=== PATIENT | female | born 1950 | race Two or more races ===

== ENCOUNTER 2017-07-29 18:27 | Inpatient (IN) | payer MEDICARE, OTHER ==
[~2017-07-29] VITALS: Ht 157.5 cm; Wt 60.8 kg
[2017-07-29] MEDS ORDERED: MIRT15TA7 PO (18:32)
[2017-07-29] MEDS ORDERED: QUET100T PO (18:32)
[2017-07-29] MEDS ORDERED: QUET300T2 PO (18:32)
[2017-07-29] MEDS ORDERED: LAMO200T PO (18:32)
--- NOTE | 2017-07-29 18:46 | NUR ---
Iced water & apple juice provided per patient's request.
--- NOTE | 2017-07-29 19:10 | NUR ---
Patient medically cleared by Dr Mensah. Called Laly Wakefield from [facility] to eval patient. ETA 1hr
--- NOTE | 2017-07-29 19:55 | NUR ---
Pinky from [facility] here to eval patient
--- NOTE | 2017-07-29 20:00 | NUR ---
Laly from [facility] placed patient on 5150 Hold for GD
--- NOTE | 2017-07-29 20:30 | NUR ---
[place]abil[place] [facility] [place]
[2017-07-29] MEDS ORDERED: MAG HYDROX/AL HYDROX/SIMETH 30 ML LIQUID UDC PO PRN (21:45)
[2017-07-29] MEDS ORDERED: MAGNESIUM HYDROXIDE 30 ML LIQUID UDC PO PRN (21:45)
[2017-07-29] MEDS ORDERED: LORAZEPAM 0.5 MG TABLET PO PRN (21:45)
[2017-07-29 22:15] VITALS: BP 121/52
[2017-07-30] MEDS: TEMAZEPAM 7.5 MG CAPSULE PO PRN (00:08)
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
[2017-07-30 07:30] VITALS: BP 140/80
--- NOTE | 2017-07-30 14:03 | NUR ---
Gps/Chronic Specialist- MRSA swab obtained and sent to lab.
[2017-07-30] MEDS: ACETAMINOPHEN 325 MG TABLET PO PRN (15:16)
[2017-07-30 15:54] VITALS: BP 163/82
[2017-07-30 20:00] VITALS: BP_SYST 162; BP_SYST 188; BP_DIAS 57; BP_DIAS 68
[2017-07-30] MEDS: LAMOTRIGINE 200 MG TABLET PO SCH (21:00)
[2017-07-30] MEDS ORDERED: QUETIAPINE FUMARATE 100 MG TABLET PO SCH (21:45)
[2017-07-30] MEDS ORDERED: MIRTAZAPINE 15 MG TABLET PO ONE (22:00)
[2017-07-30] MEDS ORDERED: QUETIAPINE FUMARATE 200 MG TABLET PO ONE (22:00)
[2017-07-30] MEDS ORDERED: MIRTAZAPINE 15 MG TABLET ONE (22:13)
[2017-07-30] MEDS ORDERED: LAMOTRIGINE 100 MG TABLET ONE (22:13)
[2017-07-30] MEDS ORDERED: QUETIAPINE FUMARATE 100 MG TABLET ONE (22:14)
[2017-07-30] MEDS ORDERED: QUETIAPINE FUMARATE 200 MG TABLET ONE (22:21)
[2017-07-30] MEDS ORDERED: CLONIDINE HCL 0.1 MG TABLET PO PRN (22:30)
[2017-07-31 07:05] LABS: BASOPHILS % (AUTO) 0.5 % (0.0-2.0); EOSINOPHILS # (AUTO) 0.1 K/uL (0.0-0.7); EOSINOPHILS % (AUTO) 3.5 % (0.0-7.0); HEMATOCRIT 39.3 % (31.2-41.9); HEMOGLOBIN 13.1 g/dL (10.9-14.3); LYMPHOCYTES # (AUTO) 1.8 K/uL (20.0-40.0); LYMPHOCYTES % (AUTO) 44.5 % (20.5-51.5); MEAN CORPUSCULAR HEMOGLOBIN 32.1 uug (24.7-32.8); MEAN CORPUSCULAR HGB CONC 33 g/dL (32.3-35.6); MEAN CORPUSCULAR VOLUME 96.1 fL (75.5-95.3); MONOCYTES # (AUTO) 0.4 K/uL (2.0-10.0); MONOCYTES % (AUTO) 9.7 % (0.0-11.0); NEUTROPHILS # (AUTO) 1.7 K/uL (1.8-8.9); NEUTROPHILS % (AUTO) 41.8 % (38.5-71.5); PLATELET COUNT (AUTO) 280 K/uL (179-408); RED BLOOD CELL COUNT(AUTO) 4.08 MIL/uL (3.63-4.92); WHITE BLOOD COUNT (AUTO) 4.1 K/uL (3.8-11.8)
[2017-07-31 07:25] LABS: THYROID STIMULATING HORMONE 6.425 mIU/mL (0.358-3.740)
[2017-07-31 07:41] LABS: BILIRUBIN,TOTAL 0.2 mg/dL (0.2-1.0); CREATININE 0.7 mg/dL (0.6-1.3); MAGNESIUM 2.5 mg/dL (1.8-2.4); PHOSPHOROUS 3.8 mg/dL (2.5-4.9); POTASSIUM 4.1 mmol/L (3.5-5.1); TOTAL PROTEIN, SERUM 6.4 g/dL (6.4-8.2)
[2017-07-31 08:30] VITALS: BP 123/65
[2017-07-31] MEDS: LAMOTRIGINE 200 MG TABLET PO SCH ×2 (10:22→21:23)
[2017-07-31 15:43] VITALS: BP 144/90
[2017-07-31] MEDS: ACETAMINOPHEN 325 MG TABLET PO PRN (16:50)
[2017-07-31 19:39] VITALS: BP 137/67
--- NOTE | 2017-07-31 20:47 | NUR ---
Patient received in dinning room watching t.v. interacting with staff and peers. Patient in no apparent distress will continue to monitor. Patient denies delusions, no yelling, no screaming. No aggressive or combative behavior noted will continue to monitor and redirect as needed. Patient complaint with medication.
[2017-07-31] MEDS: MIRTAZAPINE 15 MG TABLET PO SCH (21:00)
[2017-07-31] MEDS: QUETIAPINE FUMARATE 200 MG TABLET PO SCH (21:24)
[2017-08-01] MEDS: LEVOTHYROXINE SODIUM 25 MCG TABLET PO SCH (06:20)
[2017-08-01 07:30] VITALS: BP 122/61
[2017-08-01] MEDS: LAMOTRIGINE 200 MG TABLET PO SCH ×2 (09:09→21:22)
[2017-08-01 15:35] VITALS: BP 132/74
--- NOTE | 2017-08-01 15:51 | NUR ---
DC Note: Surya miller lives home alone in [address] [[address] [address]; [phone]] and would like to return there upon discharge. SW will follow up with MD, patient, and patient's watch case polisher Pina [[phone]] to discuss most appropriate discharge plans. SW will form a safe and proper discharge.
[2017-08-01] MEDS: CLONAZEPAM 0.5 MG TABLET PO SCH (17:25)
[2017-08-01 20:24] VITALS: BP 144/48
[2017-08-01] MEDS: MIRTAZAPINE 15 MG TABLET PO SCH (21:22)
[2017-08-01] MEDS: QUETIAPINE FUMARATE 200 MG TABLET PO SCH (21:23)
--- NOTE | 2017-08-01 21:50 | NUR ---
Patient received in dinning room watching t.v. interacting with staff and peers. Patient is intrusive, needy, demanding wants instant gratification, is redirectable. Patient in no apparent distress will continue to monitor. Patient denies delusions, no yelling, no screaming. No aggressive or combative behavior noted will continue to monitor and redirect as needed. Patient complaint with medication.
[2017-08-01 22:12] VITALS: BP 141/75
[2017-08-01] MEDS: TEMAZEPAM 7.5 MG CAPSULE PO PRN (23:47)
[2017-08-02] MEDS: LEVOTHYROXINE SODIUM 25 MCG TABLET PO SCH (06:38)
[2017-08-02 07:30] VITALS: BP 113/53
[2017-08-02] MEDS: LAMOTRIGINE 200 MG TABLET PO SCH ×2 (09:06→20:44)
[2017-08-02] MEDS: CLONAZEPAM 0.5 MG TABLET PO SCH ×3 (09:07→16:50)
--- NOTE | 2017-08-02 09:55 | NUR ---
Firearms Reporting: DAVID submitted Mental Health Report to [facility] on 08/02.
[2017-08-02 15:08] VITALS: BP 166/68
[2017-08-02] MEDS: ACETAMINOPHEN 325 MG TABLET PO PRN (16:49)
[2017-08-02 19:41] VITALS: BP_SYST 113; BP_SYST 130; BP_DIAS 57; BP_DIAS 71
[2017-08-02] MEDS: MIRTAZAPINE 15 MG TABLET PO SCH (20:44)
[2017-08-02] MEDS: QUETIAPINE FUMARATE 200 MG TABLET PO SCH (20:45)
--- NOTE | 2017-08-02 20:45 | NUR ---
RECEIVED PATIENT WALKING THE HALLWAY.SHE IS A/O X3.COOPERATIVE WITH STAFF IN HER CARE BUT PRE OCCUPIED WITH MEDICATION REGIMEN. SHE IS HOWEVER MED COMPLIANT.SAFETY EMPHASIZED AND BED IN LOW POSITION WITH WHEELS LOCKED AND FREQUENT HEAD CHECKS . NOTED WITH HYPERVERBAL AND MOOD IS BRIGHT.
[2017-08-03] MEDS: LEVOTHYROXINE SODIUM 25 MCG TABLET PO SCH (06:27)
--- NOTE | 2017-08-03 07:05 | NUR ---
PATIENT SLEPT FOR APPROXIMATELY 8HRS THROUGH THE NIGHT. NO BEHAVIORAL PROBLEMS DURING THIS SHIFT
[2017-08-03 07:30] VITALS: BP 118/54
[2017-08-03] MEDS: LAMOTRIGINE 200 MG TABLET PO SCH ×2 (08:53→20:54)
[2017-08-03] MEDS: CLONAZEPAM 0.5 MG TABLET PO SCH ×3 (08:53→17:32)
[2017-08-03 16:22] VITALS: BP 149/57
--- NOTE | 2017-08-03 17:39 | NUR ---
visible on unit and remains needy and intrusive, affect hyper and mood labile continue to monitor for safety , encourage expression of fears
[2017-08-03 20:08] VITALS: BP 140/65
--- NOTE | 2017-08-03 20:30 | NUR ---
RECEIVED PATIENT IN THE HALLWAY, SHE IS NOTED A/O X 3. ABLE TO AMBULATE WITH STEADY GAIT AND ABLE TO MAKE HER NEEDS KNOWN. PATIENT NOTED WITH FAIR INSIGHT, FAIR JUDGMENT. HYPERVERBAL, INTRUSIVE. SHE IS ABLE TO COMPLY WITH MEDICATION REGIMENT DIET AND PLAN OF CARE. SAFETY EMPHASIS. BED AT LOWEST POSITION, ROOM FREE FROM CLUTTER, WELL-LIT AND FREQUENT HEAD CHECKS. WILL CONTINUE TO MONITOR
[2017-08-03] MEDS: MIRTAZAPINE 15 MG TABLET PO SCH (20:53)
[2017-08-03] MEDS: QUETIAPINE FUMARATE 200 MG TABLET PO SCH (20:54)
[2017-08-04] MEDS: LEVOTHYROXINE SODIUM 25 MCG TABLET PO SCH (06:50)
[2017-08-04 07:30] VITALS: BP 139/46
[2017-08-04] MEDS: CLONAZEPAM 0.5 MG TABLET PO SCH ×2 (08:39→12:22)
[2017-08-04] MEDS: LAMOTRIGINE 200 MG TABLET PO SCH (08:39)
--- NOTE | 2017-08-04 10:22 | NUR ---
DC Note: Patient will be discharged home [[address] [place] [address]; [phone]] via taxi today. Patient is alert and oriented x4 and denies SI and HI. Patient is aware and agreeable to discharge plans. Patient does not want any family contacted regarding discharge plans. Patient will follow up with her psychiatrist Dr. Adeline Morocho [[address] [place] [address]; [phone]] and primary care physician Dr. Shruti Panchal [[address] [address]; [phone]]. Patient will also follow up with her bilingual patient support caseworker Pina through [facility]. [[phone]] Patient was provided additional mental health resources to the National Suicide Prevention Lifeline and the [facility] Crisis Line .
--- NOTE | 2017-08-04 11:43 | NUR ---
Gps/[employer] Operator- Reviewed medications/prescriptions, diet, safety, follow up with Medical Doctor and Psychiatrist recommended, patient verbalized understanding. All belongings given back to patient and signed.No New compliant noted, patient aware and well instructed regarding her discharged instructions, verbalizing understanding.Looking forward to going home per patient. Will be discharge via taxi to [facility] as arranged by DAVID.
== END 2017-08-04 14:30 | disposition home or self-care (01) | DRG 885 ==
LOC: ER 18:30 → GPS 21:51
PROVIDERS: ADMIT Psychiatry & Neurology Psychiatry; ATTEND Internal Medicine
DX: F31.2 Bipolar disorder, current episode manic severe with psychotic features (principal); E88.09 Other disorders of plasma-protein metabolism, not elsewhere classified; E03.9 Hypothyroidism, unspecified; Z90.49 Acquired absence of other specified parts of digestive tract; E55.9 Vitamin D deficiency, unspecified; F20.9 Schizophrenia, unspecified; Z79.899 Other long term (current) drug therapy
CPT/HCPCS: 36415; 82306; 83735; 84100; 84443; 85025; A4663

== ENCOUNTER 2020-07-04 20:48 | Inpatient (IN) | payer MEDICARE, OTHER ==
[~2020-07-04] VITALS: Ht 160 cm; Wt 63.5 kg
[2020-07-04] MEDS ORDERED: ACETAMINOPHEN ES 500 MG TABLET PO ONE (21:00)
[2020-07-04] MEDS ORDERED: ASPIRIN 81 MG TAB.CHEW PO ONE (21:00)
[2020-07-04] MEDS ORDERED: NITROGLYCERIN OINT 1 GM PACKET TP ONE ×2 (21:00→21:15)
[2020-07-04] MEDS ORDERED: ACETAMINOPHEN ES 500 MG TABLET ONE (21:14)
[2020-07-04] MEDS ORDERED: ASPIRIN 81 MG TAB.CHEW ONE (21:15)
[2020-07-04] MEDS ORDERED: PRAZ2CAP2 PO (21:16)
[2020-07-04] MEDS ORDERED: QUET100T PO (21:16)
[2020-07-04] MEDS ORDERED: LEVO50TA8 PO (21:16)
[2020-07-04] MEDS ORDERED: LAMO200T10 PO (21:16)
[2020-07-04] MEDS ORDERED: QUET300T2 PO (21:16)
[2020-07-04 21:24] LABS: BASOPHILS % (AUTO) 0.4 % (0.0-2.0); EOSINOPHILS # (AUTO) 0.1 K/uL (0.0-0.7); EOSINOPHILS % (AUTO) 1.9 % (0.0-7.0); HEMATOCRIT 41.2 % (31.2-41.9); HEMOGLOBIN 13.9 g/dL (10.9-14.3); LYMPHOCYTES # (AUTO) 1.3 K/uL (20.0-40.0); LYMPHOCYTES % (AUTO) 16.3 % (20.5-51.5); MEAN CORPUSCULAR HEMOGLOBIN 32.6 uug (24.7-32.8); MEAN CORPUSCULAR HGB CONC 34 g/dL (32.3-35.6); MEAN CORPUSCULAR VOLUME 96.4 fL (75.5-95.3); MONOCYTES # (AUTO) 0.7 K/uL (2.0-10.0); MONOCYTES % (AUTO) 8.9 % (0.0-11.0); NEUTROPHILS # (AUTO) 5.7 K/uL (1.8-8.9); NEUTROPHILS % (AUTO) 72.5 % (38.5-71.5); PLATELET COUNT (AUTO) 303 K/uL (179-408); RED BLOOD CELL COUNT(AUTO) 4.27 MIL/uL (3.63-4.92); WHITE BLOOD COUNT (AUTO) 7.9 K/uL (3.8-11.8)
[2020-07-04 21:27] LABS: CREATININE 1.1 mg/dL (0.6-1.3); POTASSIUM 4.1 mmol/L (3.5-5.1)
[2020-07-04 21:33] LABS: BILIRUBIN,DIRECT 0.2 mg/dL (0.0-0.2); BILIRUBIN,TOTAL 0.2 mg/dL (0.2-1.0); TOTAL PROTEIN, SERUM 7.6 g/dL (6.4-8.2)
[2020-07-05] MEDS ORDERED: CEphaleXIN 500 MG CAPSULE PO ONE (00:45)
[2020-07-05] MEDS ORDERED: CEphaleXIN 500 MG CAPSULE ONE (00:48)
[2020-07-05 01:30] VITALS: BP 139/59
[2020-07-05] MEDS ORDERED: MAGNESIUM HYDROXIDE 30 ML LIQUID UDC PO PRN (01:30)
[2020-07-05] MEDS ORDERED: MAG HYDROX/AL HYDROX/SIMETH 30 ML LIQUID UDC PO PRN (01:30)
[2020-07-05] MEDS: TEMAZEPAM 7.5 MG CAPSULE PO PRN (02:34)
[2020-07-05 07:30] VITALS: BP 143/57
[2020-07-05] MEDS ORDERED: CLONIDINE HCL 0.1 MG TABLET PO PRN (07:45)
[2020-07-05 08:28] LABS: BILIRUBIN,TOTAL 0.1 mg/dL (0.2-1.0); CREATININE 0.8 mg/dL (0.6-1.3); POTASSIUM 4.2 mmol/L (3.5-5.1); TOTAL PROTEIN, SERUM 6.8 g/dL (6.4-8.2)
[2020-07-05] MEDS: LEVOTHYROXINE SODIUM 50 MCG TABLET PO SCH (09:22)
[2020-07-05] MEDS ORDERED: INFLUENZA VACCINE 2020-2021 0.5 ML DISP.SYRIN IM ONE (09:32)
[2020-07-05 15:53] LABS: *BILIRUBIN,URIN NEGATIVE (NEGATIVE); *COLOR,URINE YELLOW (YELLOW); *KETONES,URINE NEGATIVE (NEGATIVE); *UROBILINOGEN,URINE 0.2 E.U./dl (NORMAL); LEUKOCYTE ESTERASE ,URINE 2+ (NEGATIVE); NITRITE, URINE NEGATIVE (NEGATIVE); UGLUCOSE NEGATIVE (NEGATIVE)
[2020-07-05 15:55] LABS: *BLOOD, URINE TRACE (NEGATIVE)
[2020-07-05 16:00] VITALS: BP 159/73
[2020-07-05 16:03] LABS: *CLARITY,URINE SLIGHTLY CLOUDY (CLEAR)
[2020-07-05 16:04] LABS: BACTERIA,URINE FEW /HPF (NONE SEEN); RBC,URINE 0-3 /HPF (0-3); SQUAMOUS EPITHELIAL CELL,UR FEW /HPF (NONE SEEN); WBC,URINE 50-80 /HPF (0-3)
[2020-07-05] MEDS: PRAZOSIN HCL 1 MG CAPSULE PO SCH (20:04)
[2020-07-05] MEDS: QUETIAPINE FUMARATE 200 MG TABLET PO SCH (20:04)
[2020-07-05] MEDS: LAMOTRIGINE 100 MG TABLET PO SCH (20:04)
[2020-07-05] MEDS: ACETAMINOPHEN 325 MG TABLET PO PRN (20:05)
[2020-07-05 20:24] VITALS: BP 155/78
[2020-07-05] MEDS: NITROFURANTOIN/NITROFURAN MAC 100 MG CAPSULE PO SCH (20:51)
[2020-07-06] MEDS: LEVOTHYROXINE SODIUM 50 MCG TABLET PO SCH (06:34)
[2020-07-06 07:30] VITALS: BP 147/66
[2020-07-06] MEDS: NITROFURANTOIN/NITROFURAN MAC 100 MG CAPSULE PO SCH ×2 (08:31→20:02)
[2020-07-06 16:00] VITALS: BP 167/78
[2020-07-06] MEDS: PRAZOSIN HCL 1 MG CAPSULE PO SCH (20:02)
[2020-07-06] MEDS: LAMOTRIGINE 100 MG TABLET PO SCH (20:02)
[2020-07-06] MEDS: QUETIAPINE FUMARATE 200 MG TABLET PO SCH (20:03)
[2020-07-06 20:14] VITALS: BP 148/75
[2020-07-06] MEDS: ACETAMINOPHEN 325 MG TABLET PO PRN (22:30)
[2020-07-06] MEDS ORDERED: TEMAZEPAM 7.5 MG CAPSULE ONE (23:16)
[2020-07-06] MEDS: TEMAZEPAM 7.5 MG CAPSULE PO PRN (23:33)
[2020-07-07] MEDS: NITROFURANTOIN/NITROFURAN MAC 100 MG CAPSULE PO SCH ×2 (09:00→20:16)
[2020-07-07] MEDS: LEVOTHYROXINE SODIUM 50 MCG TABLET PO SCH (09:00)
[2020-07-07] MEDS: LORAZEPAM 1 MG TABLET PO PRN (14:52)
[2020-07-07 15:21] VITALS: BP 136/102
[2020-07-07 20:00] VITALS: BP 141/77
[2020-07-07] MEDS: QUETIAPINE FUMARATE 200 MG TABLET PO SCH (20:16)
[2020-07-07] MEDS: LAMOTRIGINE 100 MG TABLET PO SCH ×2 (20:16→21:00)
[2020-07-07] MEDS: PRAZOSIN HCL 1 MG CAPSULE PO SCH (20:16)
[2020-07-08 07:30] VITALS: BP 130/58
[2020-07-08] MEDS: NITROFURANTOIN/NITROFURAN MAC 100 MG CAPSULE PO SCH ×2 (08:58→20:17)
[2020-07-08] MEDS: LEVOTHYROXINE SODIUM 50 MCG TABLET PO SCH (08:59)
[2020-07-08] MEDS: ACETAMINOPHEN 325 MG TABLET PO PRN ×2 (11:41→20:17)
[2020-07-08] MEDS: LORAZEPAM 1 MG TABLET PO PRN (11:41)
[2020-07-08 16:00] VITALS: BP 103/70
[2020-07-08] MEDS: PRAZOSIN HCL 1 MG CAPSULE PO SCH (20:17)
[2020-07-08] MEDS: diphenhydrAMINE 25 MG CAP PO SCH (20:17)
[2020-07-08] MEDS: LAMOTRIGINE 100 MG TABLET PO SCH (20:18)
[2020-07-08] MEDS: QUETIAPINE FUMARATE 200 MG TABLET PO SCH (20:18)
[2020-07-08 21:16] VITALS: BP 135/63
[2020-07-09 07:59] VITALS: BP 138/58
[2020-07-09] MEDS: ACETAMINOPHEN 325 MG TABLET PO PRN ×2 (09:09→21:39)
[2020-07-09] MEDS: LORAZEPAM 1 MG TABLET PO PRN ×2 (09:09→21:18)
[2020-07-09] MEDS: NITROFURANTOIN/NITROFURAN MAC 100 MG CAPSULE PO SCH ×2 (09:09→20:29)
[2020-07-09] MEDS: LEVOTHYROXINE SODIUM 50 MCG TABLET PO SCH (09:09)
[2020-07-09] MEDS: CLONAZEPAM 0.5 MG TABLET PO SCH ×3 (15:00→17:00)
[2020-07-09] MEDS: diphenhydrAMINE 25 MG CAP PO SCH (20:27)
[2020-07-09 20:28] VITALS: BP 145/95
[2020-07-09] MEDS: LAMOTRIGINE 100 MG TABLET PO SCH (20:28)
[2020-07-09] MEDS: PRAZOSIN HCL 1 MG CAPSULE PO SCH (20:29)
[2020-07-09] MEDS: QUETIAPINE FUMARATE 200 MG TABLET PO SCH (20:31)
[2020-07-10 07:30] VITALS: BP 147/53
[2020-07-10] MEDS: CLONAZEPAM 0.5 MG TABLET PO SCH ×3 (08:23→18:33)
[2020-07-10] MEDS: LEVOTHYROXINE SODIUM 50 MCG TABLET PO SCH (08:24)
[2020-07-10] MEDS: NITROFURANTOIN/NITROFURAN MAC 100 MG CAPSULE PO SCH (08:24)
[2020-07-10] MEDS: ACETAMINOPHEN 325 MG TABLET PO PRN ×2 (08:27→20:13)
[2020-07-10] MEDS ORDERED: diphenhydrAMINE 50 MG/1 ML VIAL IM ONE (11:30)
[2020-07-10] MEDS ORDERED: LORAZEPAM 2 MG/1 ML VIAL IV ONE (11:30)
[2020-07-10] MEDS ORDERED: HALOPERIDOL LACTATE 5 MG/1 ML VIAL IM ONE (11:30)
[2020-07-10 16:00] VITALS: BP 169/77
[2020-07-10] MEDS: OLANZAPINE ZYDIS 5 MG TAB.RAPDIS PO SCH (18:38)
[2020-07-10 20:07] VITALS: BP 156/63
[2020-07-10] MEDS: diphenhydrAMINE 25 MG CAP PO SCH (20:11)
[2020-07-10] MEDS: LAMOTRIGINE 100 MG TABLET PO SCH (20:11)
[2020-07-10] MEDS: PRAZOSIN HCL 1 MG CAPSULE PO SCH (20:12)
[2020-07-10] MEDS: QUETIAPINE FUMARATE 200 MG TABLET PO SCH (20:12)
[2020-07-11] MEDS: LEVOTHYROXINE SODIUM 50 MCG TABLET PO SCH (06:26)
[2020-07-11] MEDS: OLANZAPINE ZYDIS 5 MG TAB.RAPDIS PO SCH ×2 (08:20→16:20)
[2020-07-11] MEDS: CLONAZEPAM 0.5 MG TABLET PO SCH ×3 (08:20→16:20)
[2020-07-11] MEDS: ACETAMINOPHEN 325 MG TABLET PO PRN ×2 (09:26→18:49)
[2020-07-11] MEDS: LORAZEPAM 1 MG TABLET PO PRN (09:27)
[2020-07-11] MEDS: LAMOTRIGINE 25 MG TABLET PO SCH (20:13)
[2020-07-11] MEDS: LAMOTRIGINE 100 MG TABLET PO SCH (20:13)
[2020-07-11] MEDS: diphenhydrAMINE 25 MG CAP PO SCH (20:13)
[2020-07-11] MEDS: PRAZOSIN HCL 1 MG CAPSULE PO SCH (20:14)
[2020-07-11] MEDS: QUETIAPINE FUMARATE 200 MG TABLET PO SCH (20:14)
[2020-07-11 20:44] VITALS: BP 154/51
[2020-07-12] MEDS: LEVOTHYROXINE SODIUM 50 MCG TABLET PO SCH (06:02)
[2020-07-12] MEDS: ACETAMINOPHEN 325 MG TABLET PO PRN ×3 (06:02→16:51)
[2020-07-12 07:30] VITALS: BP 116/71
[2020-07-12] MEDS: OLANZAPINE ZYDIS 5 MG TAB.RAPDIS PO SCH ×2 (08:34→16:26)
[2020-07-12] MEDS: CLONAZEPAM 0.5 MG TABLET PO SCH ×4 (08:34→16:33)
[2020-07-12 15:08] VITALS: BP 114/70
[2020-07-12 20:00] VITALS: BP 162/62
[2020-07-12] MEDS: diphenhydrAMINE 25 MG CAP PO SCH (20:20)
[2020-07-12] MEDS: QUETIAPINE FUMARATE 200 MG TABLET PO SCH (20:20)
[2020-07-12] MEDS: LAMOTRIGINE 100 MG TABLET PO SCH (20:21)
[2020-07-12] MEDS: LAMOTRIGINE 25 MG TABLET PO SCH (20:21)
[2020-07-12] MEDS: PRAZOSIN HCL 1 MG CAPSULE PO SCH (20:21)
[2020-07-13] MEDS: LEVOTHYROXINE SODIUM 50 MCG TABLET PO SCH (06:28)
[2020-07-13 07:30] VITALS: BP 123/52
[2020-07-13] MEDS: OLANZAPINE ZYDIS 5 MG TAB.RAPDIS PO SCH ×2 (08:09→16:46)
[2020-07-13] MEDS: CLONAZEPAM 0.5 MG TABLET PO SCH ×3 (08:10→16:46)
[2020-07-13] MEDS ORDERED: FLUCONAZOLE 100 MG TABLET PO ONE (12:00)
[2020-07-13] MEDS: IBUPROFEN 400 MG TABLET PO PRN (13:56)
[2020-07-13 16:03] VITALS: BP 148/72
[2020-07-13 20:00] VITALS: BP 158/65
[2020-07-13] MEDS: diphenhydrAMINE 25 MG CAP PO SCH (20:02)
[2020-07-13] MEDS: QUETIAPINE FUMARATE 200 MG TABLET PO SCH (20:02)
[2020-07-13] MEDS: PRAZOSIN HCL 1 MG CAPSULE PO SCH (20:03)
[2020-07-13] MEDS: LAMOTRIGINE 100 MG TABLET PO SCH (20:03)
[2020-07-13] MEDS: LAMOTRIGINE 25 MG TABLET PO SCH (20:05)
[2020-07-14] MEDS: LEVOTHYROXINE SODIUM 50 MCG TABLET PO SCH (06:32)
[2020-07-14 06:58] LABS: BASOPHILS % (AUTO) 0.7 % (0.0-2.0); EOSINOPHILS # (AUTO) 0.2 K/uL (0.0-0.7); EOSINOPHILS % (AUTO) 5.6 % (0.0-7.0); HEMATOCRIT 36.3 % (31.2-41.9); HEMOGLOBIN 12.4 g/dL (10.9-14.3); LYMPHOCYTES # (AUTO) 1.5 K/uL (20.0-40.0); LYMPHOCYTES % (AUTO) 35.6 % (20.5-51.5); MEAN CORPUSCULAR HEMOGLOBIN 33.4 uug (24.7-32.8); MEAN CORPUSCULAR HGB CONC 34 g/dL (32.3-35.6); MEAN CORPUSCULAR VOLUME 98.1 fL (75.5-95.3); MONOCYTES # (AUTO) 0.5 K/uL (2.0-10.0); MONOCYTES % (AUTO) 10.8 % (0.0-11.0); NEUTROPHILS % (AUTO) 47.3 % (38.5-71.5); PLATELET COUNT (AUTO) 263 K/uL (179-408); WHITE BLOOD COUNT (AUTO) 4.2 K/uL (3.8-11.8)
[2020-07-14 07:15] LABS: BILIRUBIN,TOTAL 0.2 mg/dL (0.2-1.0); CREATININE 0.9 mg/dL (0.6-1.3); POTASSIUM 4.4 mmol/L (3.5-5.1); TOTAL PROTEIN, SERUM 6.1 g/dL (6.4-8.2)
[2020-07-14 07:30] VITALS: BP 111/70
[2020-07-14 07:40] LABS: THYROID STIMULATING HORMONE 2.365 mIU/mL (0.358-3.740)
[2020-07-14] MEDS: OLANZAPINE ZYDIS 5 MG TAB.RAPDIS PO SCH ×2 (08:18→16:45)
[2020-07-14] MEDS: CLONAZEPAM 0.5 MG TABLET PO SCH ×4 (08:18→16:45)
[2020-07-14] MEDS: IBUPROFEN 400 MG TABLET PO PRN ×2 (09:09→16:45)
[2020-07-14 15:13] VITALS: BP 139/80
[2020-07-14 20:20] VITALS: BP 152/67
[2020-07-14] MEDS: QUETIAPINE FUMARATE 200 MG TABLET PO SCH (21:17)
[2020-07-14] MEDS: diphenhydrAMINE 25 MG CAP PO SCH (21:17)
[2020-07-14] MEDS: PRAZOSIN HCL 1 MG CAPSULE PO SCH (21:18)
[2020-07-14] MEDS: LAMOTRIGINE 100 MG TABLET PO SCH (21:18)
[2020-07-14] MEDS: LAMOTRIGINE 25 MG TABLET PO SCH (21:19)
[2020-07-14] MEDS: ACETAMINOPHEN 325 MG TABLET PO PRN (21:28)
[2020-07-14] MEDS: TEMAZEPAM 7.5 MG CAPSULE PO PRN (22:41)
[2020-07-15] MEDS: LEVOTHYROXINE SODIUM 50 MCG TABLET PO SCH (06:33)
[2020-07-15 07:30] VITALS: BP 120/52
[2020-07-15 08:06] LABS: TRIIODOTHYRONINE, FREE 2.1 pg/mL (2.0-4.4)
[2020-07-15] MEDS: OLANZAPINE ZYDIS 5 MG TAB.RAPDIS PO SCH (08:33)
[2020-07-15] MEDS: CLONAZEPAM 0.5 MG TABLET PO SCH (08:33)
== END 2020-07-15 11:30 | DRG 885 ==
LOC: ER 20:48 → GPS 07-05 01:03
PROVIDERS: ADMIT Psychiatry & Neurology Psychiatry; ATTEND Nurse Practitioner Acute Care
DX: F31.64 Bipolar disorder, current episode mixed, severe, with psychotic features (principal); N39.0 Urinary tract infection, site not specified; F23 Brief psychotic disorder; Z90.49 Acquired absence of other specified parts of digestive tract; Z20.822 Contact with and (suspected) exposure to COVID-19; Z73.6 Limitation of activities due to disability; R73.9 Hyperglycemia, unspecified; F29 Unspecified psychosis not due to a substance or known physiological condition; M19.90 Unspecified osteoarthritis, unspecified site; E02 Subclinical iodine-deficiency hypothyroidism; F41.9 Anxiety disorder, unspecified; Z87.440 Personal history of urinary (tract) infections
CPT/HCPCS: 36415; 70030-TC; 71045; 84443; 84480; 84481; 85025; 87086; 90686; 93005; A4663; A9150; J1200; J1630; J2060; Q0163